=== PATIENT | female | born 1990 | race Asian ===

== ENCOUNTER 2017-09-17 05:55 | Day surgery (SDC) | payer BC ==
[2017-09-17] MEDS ORDERED: MIDAZOLAM 1 MG/ML 2 ML INJ (15:38)
[2017-09-17] MEDS ORDERED: FENTAnyl 50 MCG/ML VIAL (15:38)
== END 2017-09-17 10:28 | disposition home or self-care (01) ==
LOC: GIL 05:55
DX: K29.30 Chronic superficial gastritis without bleeding (principal); K21.9 Gastro-esophageal reflux disease without esophagitis
CPT/HCPCS: 43239; 84703; 88305; 88312